=== PATIENT | male | born 1965 | race Caucasian/White ===

== ENCOUNTER 2017-08-03 13:45 | Outpatient (RCR) | payer OTHER, MEDICAID, SELFPAY ==
--- NOTE | 2017-07-20 12:05 | PT.OTN ---
Current Diagnoses Foot drop, left foot (07/20/17) Stiffness of left ankle, not elsewhere classified (07/20/17) Muscle weakness (generalized) (07/20/17) Difficulty in walking, not elsewhere classified (07/20/17) Transition note: On July 18, 2017 our therapy services consisting of Speech, Occupational, and Physical Therapy transitioned from the [employer] electronic documentation system to a new [employer] electronic documentation system.?? All documentation prior to July 18 can be found under [employer] saved data. From July 18 forward all medical record documentation will be in [facility] 6.1.
--- NOTE | 2017-07-27 15:25 | PT.OTN ---
Current Diagnoses Foot drop, left foot (07/27/17) Stiffness of left ankle, not elsewhere classified (07/27/17) Muscle weakness (generalized) (07/27/17) Difficulty in walking, not elsewhere classified (07/27/17) Physical Therapy Treatment Note PT-OP-A Visit Information Start: 07/27/17 14:38 Freq: Status: Active Protocol: Document 07/27/17 15:25 EA (Rec: 07/27/17 15:25 EA [id number]) Out-Patient Physical Therapy Visit Information Visit Information Visit Type Treatment Note Total Visit Minutes 10 Visit Number 2 PT-OP-C Subjective Start: 07/27/17 14:38 Freq: Status: Active Protocol: Document 07/27/17 15:20 EA (Rec: 07/27/17 15:25 EA [id number]) OP-PT Subjective Patient Comments Patient Comments Patient is late today. Patient reports he has been compliant w'/ HEP and he feels his foot dropped is much improved. Patient Reported Progress Improving PT-OP-Q Treatments Start: 07/27/17 14:38 Freq: Status: Active Protocol: Document 07/27/17 15:20 EA (Rec: 07/27/17 15:25 EA [id number]) Therapeutic Exercises Sitting Exercises 2 Sitting Exercise Name Passive manual Gastrocsoleus stretch Side left Reps/Minutes x 30SH x 3 1 Sitting Exercise Name ankle DF and Eversion Side left Resistance YTB-GTB Reps/Minutes x 12reps x2 PT-OP-T Assessment and Plan Start: 07/27/17 14:38 Freq: Status: Active Protocol: Document 07/27/17 15:20 EA (Rec: 07/27/17 15:25 EA [id number]) Physical Therapy Assessment Assessment Summary Assessment Patient is progressing well and no significant foot dropped noted at this time. recommended to see after two weeks and cont. with HEP. Physical Therapy Plan Next Visit Focus/Plan Next Visit Plan Advance as tolerated
--- NOTE | 2017-08-03 15:01 | PT.OTN ---
Current Diagnoses Foot drop, left foot (08/03/17) Stiffness of left ankle, not elsewhere classified (08/03/17) Muscle weakness (generalized) (08/03/17) Difficulty in walking, not elsewhere classified (08/03/17) Physical Therapy Treatment Note PT-OP-A Visit Information Start: 07/27/17 14:38 Freq: Status: Active Protocol: Document 08/03/17 14:54 EA (Rec: 08/03/17 15:00 EA [id number]) Out-Patient Physical Therapy Visit Information Visit Information Visit Type Treatment Note Total Visit Minutes 20 Visit Number 3 PT-OP-C Subjective Start: 07/27/17 14:38 Freq: Status: Active Protocol: Document 08/03/17 14:54 EA (Rec: 08/03/17 15:00 EA [id number]) OP-PT Subjective Patient Comments Patient Comments Patient reports has been compliant w/ HEP Patient Reported Progress Improving PT-OP-Q Treatments Start: 07/27/17 14:38 Freq: Status: Active Protocol: Document 08/03/17 14:54 EA (Rec: 08/03/17 15:00 EA [id number]) Cardio Equipment Recumbent Stepper (Sci-Fit) Duration (Minutes) 5 Resistance 2 Other heel touch foot rest Therapeutic Exercises Sitting Exercises 2 Sitting Exercise Name Passive manual Gastrocsoleus stretch Side left Reps/Minutes x 30SH x 3 1 Sitting Exercise Name ankle DF and Eversion Side left Resistance YTB-GTB Reps/Minutes x 12reps x3 seat each exercises Comments straight and bent knee Gait Training Gait Activity 1 Description heel walking Comments Noted weakness of R dorsiflexors PT-OP-T Assessment and Plan Start: 07/27/17 14:38 Freq: Status: Active Protocol: Document 08/03/17 14:54 EA (Rec: 08/03/17 15:00 EA [id number]) Physical Therapy Assessment Assessment Summary Assessment Patient exhibit foot dropped with wlaking on heels and weakness when knee is bent during DF. Recommended patient to cont HEP with addition of walking on heels. Patient to see after two weeks. Physical Therapy Plan Next Visit Focus/Plan Next Visit Plan Advance as tolerated.
--- NOTE | 2017-10-19 15:01 | PT.OTN ---
Current Diagnoses Foot drop, left foot (08/03/17) Stiffness of left ankle, not elsewhere classified (08/03/17) Muscle weakness (generalized) (08/03/17) Difficulty in walking, not elsewhere classified (08/03/17) Physical Therapy Treatment Note PT-OP-A Visit Information Start: 07/27/17 14:38 Freq: Status: Active Protocol: Document 08/03/17 14:54 EA (Rec: 08/03/17 15:00 EA [id number]) Out-Patient Physical Therapy Visit Information Visit Information Visit Type Treatment Note Total Visit Minutes 20 Visit Number 3 PT-OP-C Subjective Start: 07/27/17 14:38 Freq: Status: Active Protocol: Document 10/19/17 14:59 EA (Rec: 10/19/17 15:01 EA [id number]) OP-PT Subjective Patient Comments Patient Comments as per phone conversation today, patient reports that he is okay discharge from PT as his left foot is back to normal. Patient Reported Progress Improving PT-OP-Q Treatments Start: 07/27/17 14:38 Freq: Status: Active Protocol: Document 08/03/17 14:54 EA (Rec: 08/03/17 15:00 EA [id number]) Cardio Equipment Recumbent Stepper (Sci-Fit) Duration (Minutes) 5 Resistance 2 Other heel touch foot rest Therapeutic Exercises Sitting Exercises 2 Sitting Exercise Name Passive manual Gastrocsoleus stretch Side left Reps/Minutes x 30SH x 3 1 Sitting Exercise Name ankle DF and Eversion Side left Resistance YTB-GTB Reps/Minutes x 12reps x3 seat each exercises Comments straight and bent knee Gait Training Gait Activity 1 Description heel walking Comments Noted weakness of R dorsiflexors PT-OP-T Assessment and Plan Start: 07/27/17 14:38 Freq: Status: Active Protocol: Document 10/19/17 14:59 EA (Rec: 10/19/17 15:01 EA [id number]) Physical Therapy Assessment Assessment Summary Assessment Patient is discharge per request. Physical Therapy Plan Discharge Physical Therapy Discharge Reasons Patient Request Discharge Comments Back to previous level of function per patient.
--- NOTE | 2017-10-19 15:02 | PT.OPDS ---
Current Diagnoses Foot drop, left foot (08/03/17) Stiffness of left ankle, not elsewhere classified (08/03/17) Muscle weakness (generalized) (08/03/17) Difficulty in walking, not elsewhere classified (08/03/17) Provider Visit Care Team Role Provider Type Corrie Leslie PA-C Attending Provider Advanced Epidemiologist Family Provider Primary Care Provider Specialty: Medical Address: [address] [place] [address], [facility] Email: [email or web address] Visit Number Visit Number 3 Discharge Summary PT-OP-C Subjective Start: 07/27/17 14:38 Freq: Status: Active Protocol: Document 10/19/17 14:59 EA (Rec: 10/19/17 15:01 EA [id number]) OP-PT Subjective Patient Comments Patient Comments as per phone conversation today, patient reports that he is okay discharge from PT as his left foot is back to normal. Patient Reported Progress Improving PT-OP-T Assessment and Plan Start: 07/27/17 14:38 Freq: Status: Active Protocol: Document 10/19/17 14:59 EA (Rec: 10/19/17 15:01 EA [id number]) Physical Therapy Assessment Assessment Summary Assessment Patient is discharge per request. Physical Therapy Plan Discharge Physical Therapy Discharge Reasons Patient Request Discharge Comments Back to previous level of function per patient.
== END 2017-10-23 12:38 ==
LOC: PHYS 13:45
PROVIDERS: Family Provider Physician Assistant; PCP Physician Assistant; Visit Provider Physician Assistant
DX: M21.372 Foot drop, left foot (principal); M62.81 Muscle weakness (generalized); M25.672 Stiffness of left ankle, not elsewhere classified; R26.2 Difficulty in walking, not elsewhere classified
CPT/HCPCS: 97110

== ENCOUNTER → 2017-10-02 16:17 | Outpatient (CLI) | payer OTHER, SELFPAY ==
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
== END ==
PROVIDERS: Family Provider Physician Assistant; PCP Physician Assistant; Visit Provider Physician Assistant
DX: M79.642 Pain in left hand (principal); M25.532 Pain in left wrist
CPT/HCPCS: 73110; 73130

== ENCOUNTER → 2017-11-07 06:51 | Outpatient (CLI) | payer OTHER, SELFPAY ==
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
== END ==
PROVIDERS: PCP Physician Assistant; Visit Provider Physician Assistant
DX: S62.347A Nondisplaced fracture of base of fifth metacarpal bone, left hand, initial encounter for closed fracture (principal); S63.592A Other specified sprain of left wrist, initial encounter
CPT/HCPCS: 73221